=== PATIENT | male | born 1950 | race Caucasian/White ===

== ENCOUNTER → 2022-03-28 | Outpatient (REF) | payer MEDICARE, OTHER ==
[2022-03-28 16:24] LABS: BASO # 0.1 10^3/uL (0.0-0.2); BASO % 1.3 % (0.0-1.0); EOS # 0.1 10^3/uL (0.0-0.5); EOS % 1.3 % (0.0-3.0); LYMPH # 1.4 10^3/uL (1.5-5.0); LYMPH % 14.1 % (24.0-44.0); MEAN CORPUSCULAR HEMOGLOBIN 33.2 pg (27.0-33.0); MEAN CORPUSCULAR HGB CONC 32.7 g/dl (32.0-36.5); MEAN CORPUSCULAR VOLUME 101.5 fl (80.0-96.0); MONO # 0.8 10^3/uL (0.0-0.8); MONO % 7.7 % (2.0-8.0); NEUTROPHILS # 7.4 10^3/uL (1.5-8.5); NEUTROPHILS % 74.6 % (36.0-66.0); PLATELET COUNT, AUTOMATED 292 10^3/uL (150-450)
[2022-03-28 16:31] LABS: HEMATOCRIT 55.9 % (42.0-52.0); HEMOGLOBIN 18.3 g/dl (13.5-17.5); RED BLOOD COUNT 5.51 10^6/uL (4.30-6.10)
[2022-03-28 16:40] LABS: APPEARANCE, URINE MANUAL CLEAR (CLEAR); BILIRUBIN, URINE MANUAL NEGATIVE (NEGATIVE); BLOOD URINE MANUAL TRACE (NEGATIVE); COLOR, URINE MANUAL YELLOW (YELLOW); GLUCOSE, URINE (UA) MANUAL NEGATIVE (NEGATIVE); KETONE, URINE MANUAL NEGATIVE (NEGATIVE); LEUKOCYTE ESTERASE, URINE MAN NEGATIVE (NEGATIVE); NITRITE, URINE MANUAL NEGATIVE (NEGATIVE); PROTEIN, URINE MANUAL NEGATIVE (NEGATIVE); SPECIFIC GRAVITY,URINE MANUAL 1.015 (1.002-1.035); UROBILINOGEN, URINE MANUAL NORMAL (NORMAL)
[2022-03-28 16:54] LABS: ALBUMIN 4.3 G/DL (3.2-5.2); BILIRUBIN,TOTAL 2.2 MG/DL (0.3-1.2); C REACTIVE PROTEIN QUANTITATIV 0.6 MG/DL (<1.0); CALCIUM LEVEL 9.8 MG/DL (8.3-10.6); CREATININE FOR GFR 1.36 MG/DL (0.70-1.30); CREATININE,RANDOM URINE 39.5 MG/DL; GLOMERULAR FILTRATION RATE 54.7 (>42); TOTAL PROTEIN 7.8 G/DL (5.7-8.2)
[2022-03-28 16:55] LABS: TOTAL 25(OH) VITAMIN D 28.9 NG/ML (20.0-100.0)
[2022-03-28 16:56] LABS: COMPLEMENT C3 130.6 MG/DL (90.0-170.0); COMPLEMENT C4 32.1 MG/DL (12-36); IMMUNOGLOBULIN M 143.9 MG/DL (50-300)
[2022-03-28 16:57] LABS: TOTAL PROTEIN,RANDOM URINE < 6.0 MG/DL (0.0-14.0)
[2022-03-28 18:22] LABS: BACTERIA, URINE NONE SEEN; SQUAMOUS EPITHELIAL CELL URINE NONE SEEN /hpf (SMALL AMT); WBC, URINE NONE SEEN /hpf (0-3)
[2022-03-28 18:26] LABS: ERYTHROCYTE SEDIMENTATION RATE 41 mm/hr (0-20)
== END ==
LOC: M SFHCRHEU 12:41
PROVIDERS: ATTEND Internal Medicine Rheumatology
DX: J84.9 Interstitial pulmonary disease, unspecified (principal); R76.8 Other specified abnormal immunological findings in serum; Z79.01 Long term (current) use of anticoagulants; Z79.899 Other long term (current) drug therapy

== ENCOUNTER 2024-03-16 12:51 | Inpatient (IN) | payer OTHER, MEDICARE ==
[~2024-03-16] VITALS: Ht 180.3 cm; Wt 97.2 kg
[2024-03-16] VITALS (21 sets, daily range): BP systolic 80–114; BP diastolic 41–63; TEMP 99.4; O2SAT 83–99
[2024-03-16 13:40] LABS: VENOUS BASE EXCESS -5.9 (-2.0-2.0); VENOUS HCO3 18.6 MMOL/L (23.0-27.0); VENOUS O2 SATURATION 60.2 % (60.0-80.0); VENOUS PARTIAL PRESSURE CO2 34.1 mmHg (38.0-50.0); VENOUS PARTIAL PRESSURE O2 36.7 mmHg (30.0-50.0); VENOUS PH 7.355 UNITS (7.330-7.430); VENOUS STANDARD HCO3 18.8 MMOL/L; VENOUS TOTAL CO2 19.7 MMOL/L (24.0-28.0)
[2024-03-16] MEDS: NS 0.9% IV ONE (13:45)
[2024-03-16] MEDS: [UNRECOGNIZED DRUG - OTHER] IV ONE (13:45)
[2024-03-16] MEDS: cefTRIAXone SOD 2 GM in DEXTROSE 5% (D5W) ADV/MINI-BAG 50 ML IV ONE (13:51)
[2024-03-16 13:54] LABS: BASO % 0.2 % (0.0-1.0); EOS % 0.3 % (0.0-3.0); HEMATOCRIT 44.8 % (42.0-52.0); HEMOGLOBIN 14.9 g/dl (13.5-17.5); LYMPH # 0.7 10^3/uL (1.5-5.0); LYMPH % 7.1 % (24.0-44.0); MEAN CORPUSCULAR HEMOGLOBIN 29.3 pg (27.0-33.0); MEAN CORPUSCULAR HGB CONC 33.3 g/dl (32.0-36.5); MONO # 0.8 10^3/uL (0.0-0.8); MONO % 7.7 % (2.0-8.0); NEUTROPHILS # 8.2 10^3/uL (1.5-8.5); NEUTROPHILS % 83.9 % (36.0-66.0); PLATELET COUNT, AUTOMATED 343 10^3/uL (150-450); RED BLOOD COUNT 5.09 10^6/uL (4.30-6.10); WHITE BLOOD COUNT 9.8 10^3/uL (4.0-10.0)
[2024-03-16] MEDS: ACETAMINOPHEN *IV* 1,000 MG in IV 1 EA IV ONE (14:01)
[2024-03-16 14:10] LABS: CK-MB VALUE MASS 5.3 NG/ML (<3.6)
[2024-03-16 14:11] LABS: ALBUMIN 3.4 G/DL (3.2-5.2); BILIRUBIN,DIRECT 1.5 MG/DL (<0.4); BILIRUBIN,TOTAL 2.3 MG/DL (0.3-1.2); CALCIUM LEVEL 8.5 MG/DL (8.3-10.6); CREATININE FOR GFR 4.95 MG/DL (0.70-1.30); GLOMERULAR FILTRATION RATE 12.2 (>42); POTASSIUM SERUM 5.7 MMOL/L (3.5-5.1); TOTAL PROTEIN 6.9 G/DL (5.7-8.2)
[2024-03-16 14:13] LABS: THYROID STIMULATING HORMONE 13.921 uIU/ML (0.55-4.78); THYROXINE (T4) 4.9 UG/DL (4.5-10.9)
[2024-03-16 14:14] LABS: MB/CK RELATIVE INDEX 6.3 (< OR =4)
[2024-03-16 14:33] LABS: ABG BASE EXCESS -4.8 (-2.0-2.0); ABG HCO3 16.7 MMOL/L (22.0-26.0); ABG O2 SATURATION 79.2 % (95.0-99.0); ABG PARTIAL PRESSURE CO2 23.6 mmHg (35.0-45.0); ABG STANDARD HCO3 20.1 MMOL/L. (22.0-26.0); ABG TOTAL CO2 17.4 MMOL/L (23.0-31.0); ABG pH (ARTERIAL) 7.468 UNITS (7.350-7.450)
[2024-03-16 14:35] LABS: ABG PARTIAL PRESSURE O2 45.5 mmHg (75.0-100.0)
[2024-03-16] MEDS: fentaNYL 100 MCG/2 ML INJECTION IV ONE ×2 (15:28→16:54)
[2024-03-16] MEDS ORDERED: IPRATROPIUM 0.5MG/ALBUTEROL 2.5MG INH SOL UD 3ML (DUONEB) NEB PRN (15:50)
[2024-03-16] MEDS ORDERED: SPIR50TA4 PO (16:19)
[2024-03-16] MEDS ORDERED: DILT12SRCA PO (16:19)
[2024-03-16] MEDS ORDERED: XARE20TA PO (16:19)
[2024-03-16] MEDS ORDERED: [UNRECOGNIZED DRUG - CODE] PO (16:19)
[2024-03-16] MEDS ORDERED: SPIR1CAP INH (16:19)
[2024-03-16] MEDS ORDERED: METO200T15 PO (16:19)
[2024-03-16] MEDS ORDERED: TORS10TA3 PO (16:19)
[2024-03-16] MEDS: methylPREDNISolone 125MG 2ML VIAL IV ONE (16:26)
[2024-03-16] MEDS ORDERED: ADVA1AER9 INH (17:37)
[2024-03-16] MEDS ORDERED: TORS20TA2 PO (17:37)
[2024-03-16] MEDS ORDERED: DILT240C83 PO (17:37)
[2024-03-16] MEDS ORDERED: METO1TAB33 PO (17:37)
[2024-03-16] MEDS ORDERED: HOME MED LIST COMPLETE! XX SCH (17:40)
[2024-03-16] MEDS: DEXTROSE 50% 50ML SYRINGE IV ONE (17:51)
[2024-03-16] MEDS: SODIUM BICARBONATE 8.4% INJ 50ML SYRINGE IV ONE (17:54)
[2024-03-16] MEDS: PATIROMER SORBITEX CALCIUM 8.4 GM POWDER PACKET (VELTASSA) PO ONE ×2 (17:58→22:42)
[2024-03-16] MEDS: HumuLIN R (REGULAR) INSULIN (NovoLIN R) **100U/ML** PER UNIT IV ONE (17:59)
[2024-03-16 18:50] LABS: URIC ACID 17.6 MG/DL (3.7-9.2)
[2024-03-16 18:51] LABS: MAGNESIUM LEVEL 3.2 MG/DL (1.8-2.4)
[2024-03-16] MEDS ORDERED: DOXYCYCLINE HYCLATE 100 MG in DEXTROSE 5% (D5W) MINI-BAG PLU 100 ML IV SCH (19:20)
[2024-03-16] MEDS: NOREPINEPHRINE 4MG IN D5 250ML 4 MG in IV 1 EA IV SCH (19:39)
[2024-03-16] MEDS: MORPHINE 2 MG/ML 1ML VIAL IV PRN (19:46)
[2024-03-16] MEDS: LR 1,000 ML IV SCH (19:47)
[2024-03-16 20:46] LABS: HEMATOCRIT 42.7 % (42.0-52.0); HEMOGLOBIN 14.2 g/dl (13.5-17.5); MEAN CORPUSCULAR HEMOGLOBIN 28.9 pg (27.0-33.0); MEAN CORPUSCULAR HGB CONC 33.3 g/dl (32.0-36.5); PLATELET COUNT, AUTOMATED 335 10^3/uL (150-450); RED BLOOD COUNT 4.91 10^6/uL (4.30-6.10); WHITE BLOOD COUNT 9.6 10^3/uL (4.0-10.0)
[2024-03-16] MEDS: BUDESONIDE 0.5 MG/2 ML INHALATION SUSPENSION NEB SCH (20:55)
[2024-03-16] MEDS: ALBUTEROL SULFATE 2.5MG/0.5ML INH NEB SOLN NEB SCH (20:55)
[2024-03-16] MEDS: IPRATROPIUM 0.02% SOLN 0.5MG 2.5ML NEB NEB SCH (20:55)
[2024-03-16] MEDS: FORMOTEROL FUMARATE 20 MCG/2 ML INHALATION SOLUTION (PERFOROMIST) INH SCH (20:55)
[2024-03-16 21:13] LABS: ABG BASE EXCESS -3.7 (-2.0-2.0); ABG HCO3 18.3 MMOL/L (22.0-26.0); ABG O2 SATURATION 98.7 % (95.0-99.0); ABG PARTIAL PRESSURE CO2 26.2 mmHg (35.0-45.0); ABG PARTIAL PRESSURE O2 128.4 mmHg (75.0-100.0); ABG STANDARD HCO3 21.5 MMOL/L. (22.0-26.0); ABG TOTAL CO2 19.1 MMOL/L (23.0-31.0); ABG pH (ARTERIAL) 7.463 UNITS (7.350-7.450)
[2024-03-16] MEDS: DOXYCYCLINE HYCLATE 100 MG in DEXTROSE 5% (D5W) MINI-BAG PLU 100 ML IV SCH (21:26)
[2024-03-16 21:28] LABS: ALBUMIN 3.2 G/DL (3.2-5.2); BILIRUBIN,TOTAL 2.1 MG/DL (0.3-1.2); CALCIUM LEVEL 8.5 MG/DL (8.3-10.6); CREATININE FOR GFR 4.98 MG/DL (0.70-1.30); GLOMERULAR FILTRATION RATE 12.2 (>42); MAGNESIUM LEVEL 3.2 MG/DL (1.8-2.4); POTASSIUM SERUM 5.7 MMOL/L (3.5-5.1); TOTAL PROTEIN 6.6 G/DL (5.7-8.2)
[2024-03-17] VITALS (105 sets, daily range): BP systolic 77–130; BP diastolic 47–74; TEMP 97.2–99.8; O2SAT 85–97
[2024-03-17 04:36] LABS: HEMATOCRIT 40.2 % (42.0-52.0); HEMOGLOBIN 13.9 g/dl (13.5-17.5); MEAN CORPUSCULAR HEMOGLOBIN 29.7 pg (27.0-33.0); MEAN CORPUSCULAR HGB CONC 34.6 g/dl (32.0-36.5); MEAN CORPUSCULAR VOLUME 85.9 fl (80.0-96.0); PLATELET COUNT, AUTOMATED 337 10^3/uL (150-450); RED BLOOD COUNT 4.68 10^6/uL (4.30-6.10)
[2024-03-17 05:06] LABS: BILIRUBIN,TOTAL 1.9 MG/DL (0.3-1.2); CALCIUM LEVEL 8.7 MG/DL (8.3-10.6); CREATININE FOR GFR 4.75 MG/DL (0.70-1.30); GLOMERULAR FILTRATION RATE 12.8 (>42); PHOSPHORUS LEVEL 6.5 MG/DL (2.4-5.1); POTASSIUM SERUM 5.9 MMOL/L (3.5-5.1); TOTAL PROTEIN 6.2 G/DL (5.7-8.2)
[2024-03-17 05:53] LABS: ABG HCO3 15.7 MMOL/L (22.0-26.0); ABG O2 SATURATION 92.1 % (95.0-99.0); ABG PARTIAL PRESSURE O2 68.7 mmHg (75.0-100.0); ABG STANDARD HCO3 18.8 MMOL/L. (22.0-26.0); ABG TOTAL CO2 16.4 MMOL/L (23.0-31.0); ABG pH (ARTERIAL) 7.415 UNITS (7.350-7.450)
[2024-03-17] MEDS: PATIROMER SORBITEX CALCIUM 8.4 GM POWDER PACKET (VELTASSA) PO ONE (06:37)
[2024-03-17] MEDS: DEXTROSE 50% 50ML SYRINGE IV STA (06:38)
[2024-03-17] MEDS: HumuLIN R (REGULAR) INSULIN (NovoLIN R) **100U/ML** PER UNIT IV STA (06:38)
[2024-03-17] MEDS: FUROSEMIDE 40MG/4ML VIAL IV ONE (07:05)
[2024-03-17] MEDS ORDERED: PANTOPRAZOLE 40MG VIAL IV SCH (09:00)
[2024-03-17] MEDS: RIVAROXABAN 20MG TAB (XARELTO) PO SCH (09:39)
[2024-03-17 10:23] LABS: CALCIUM LEVEL 8.8 MG/DL (8.3-10.6); CREATININE FOR GFR 4.6 MG/DL (0.70-1.30); GLOMERULAR FILTRATION RATE 13.3 (>42); POTASSIUM SERUM 5.3 MMOL/L (3.5-5.1)
[2024-03-17] MEDS: LEVOTHYROXINE 50MCG TABLET (0.05MG) PO SCH (11:08)
[2024-03-17] MEDS: PANTOPRAZOLE 40MG TAB (PROTONIX) PO SCH (11:08)
[2024-03-17] MEDS: dexmedeTOMidine 200 MCG in IV 1 EA IV SCH (11:08)
[2024-03-17] MEDS ORDERED: DOBUTamine HCL 500,000 MCG in IV 1 EA IV SCH ×2 (11:15→11:35)
[2024-03-17] MEDS: DOBUTamine HCL 500,000 MCG in IV 1 EA IV SCH (12:24)
[2024-03-17] MEDS: SODIUM BICARBONATE 150 MEQ in STERILE WATER LITER BAG 1,000 ML IV SCH (15:16)
[2024-03-17] MEDS: cefTRIAXone SOD 2 GM in DEXTROSE 5% (D5W) ADV/MINI-BAG 50 ML IV SCH (15:16)
[2024-03-17] MEDS: SELEXIPAG PO SCH (15:16)
[2024-03-17 18:11] LABS: CALCIUM LEVEL 8.5 MG/DL (8.3-10.6); CREATININE FOR GFR 4.27 MG/DL (0.70-1.30); GLOMERULAR FILTRATION RATE 14.5 (>42)
[2024-03-17] MEDS: dilTIAZem 120MG **CD** CAPSULE PO SCH (18:53)
[2024-03-17] MEDS ORDERED: LEVALBUTEROL 1.25MG 0.5ML CONCENTRATE NEB INH PRN (20:05)
[2024-03-17] MEDS: diphenhydrAMINE 25MG CAP PO ONE (21:05)
[2024-03-17] MEDS: DOXYCYCLINE HYCLATE 100MG TABLET PO SCH (21:05)
[2024-03-17] MEDS: LEVALBUTEROL 1.25MG 0.5ML CONCENTRATE NEB INH SCH (23:20)
[2024-03-17] MEDS: IPRATROPIUM 0.02% SOLN 0.5MG 2.5ML NEB INH SCH (23:20)
[2024-03-17] MEDS: METOPROLOL TART 25 MG TABLET PO ONE (23:52)
[2024-03-18] VITALS (59 sets, daily range): BP systolic 87–133; BP diastolic 47–85; TEMP 97.2–99.2; O2SAT 87–98
[2024-03-18] MEDS: DIGOXIN INJ 0.5 MG/2 ML AMP IV STA (00:54)
[2024-03-18 03:54] LABS: ABG BASE EXCESS -3.1 (-2.0-2.0); ABG HCO3 18.8 MMOL/L (22.0-26.0); ABG O2 SATURATION 94.2 % (95.0-99.0); ABG PARTIAL PRESSURE O2 69.4 mmHg (75.0-100.0); ABG STANDARD HCO3 21.8 MMOL/L. (22.0-26.0); ABG TOTAL CO2 19.6 MMOL/L (23.0-31.0); ABG pH (ARTERIAL) 7.477 UNITS (7.350-7.450)
[2024-03-18 04:44] LABS: HEMATOCRIT 38.6 % (42.0-52.0); HEMOGLOBIN 13.2 g/dl (13.5-17.5); MEAN CORPUSCULAR HEMOGLOBIN 29.2 pg (27.0-33.0); MEAN CORPUSCULAR HGB CONC 34.2 g/dl (32.0-36.5); MEAN CORPUSCULAR VOLUME 85.4 fl (80.0-96.0); PLATELET COUNT, AUTOMATED 245 10^3/uL (150-450); RED BLOOD COUNT 4.52 10^6/uL (4.30-6.10); WHITE BLOOD COUNT 11.1 10^3/uL (4.0-10.0)
[2024-03-18 05:15] LABS: ALBUMIN 2.9 G/DL (3.2-5.2); BILIRUBIN,TOTAL 1.4 MG/DL (0.3-1.2); CALCIUM LEVEL 8.6 MG/DL (8.3-10.6); CREATININE FOR GFR 3.81 MG/DL (0.70-1.30); GLOMERULAR FILTRATION RATE 16.6 (>42); MAGNESIUM LEVEL 2.7 MG/DL (1.8-2.4); POTASSIUM SERUM 5.2 MMOL/L (3.5-5.1)
[2024-03-18] MEDS: VASOPRESSIN IN 0.9 % NACL 20 UNIT in IV 1 EA IV SCH (09:55)
[2024-03-18] MEDS ORDERED: SODIUM CHLORIDE NASAL 0.65% SPRAY BTL (OCEAN) PRN (10:00)
[2024-03-18] MEDS: FUROSEMIDE injection 100 MG, VIAL 2 BAG 13MM ADAPTER 1 EACH in NS 100 ML IV SCH (11:42)
[2024-03-18] MEDS: MORPHINE 2 MG/ML 1ML VIAL IV PRN (16:59)
[2024-03-18] MEDS: LORazepam 2 MG/ML 1ML VIAL IV PRN (17:08)
[2024-03-18] MEDS: SCOPOLAMINE 1MG TRANSDERMAL PATCH TOP PRN (17:17)
[2024-03-18] MEDS ORDERED: RIVAROXABAN 15MG TAB (XARELTO) PO SCH (18:00)
[2024-03-18] MEDS: MORPHINE 2 MG/ML 1ML VIAL IV SCH (18:00)
[2024-03-18] MEDS: ONDANSETRON 4MG 2ML VIAL IV PRN (18:07)
[2024-03-18] MEDS ORDERED: MORPHINE 4 MG/ML 1ML VIAL IV PRN (21:25)
[2024-03-18] MEDS ORDERED: LORazepam 2 MG/ML 1ML VIAL IV PRN (21:25)
[2024-03-18] MEDS ORDERED: MORPHINE 4 MG/ML 1ML VIAL As Ordered ONE (21:29)
[2024-03-18] MEDS ORDERED: LORazepam 2 MG/ML 1ML VIAL As Ordered ONE (21:30)
== END 2024-03-18 23:00 | disposition expired | DRG 189 ==
LOC: M ED 12:51 → M ED INP 17:36 → M ICU 18:52
PROVIDERS: ADMIT Internal Medicine Pulmonary Disease; ATTEND Internal Medicine
DX: J96.21 Acute and chronic respiratory failure with hypoxia (principal); J18.9 Pneumonia, unspecified organism; N17.9 Acute kidney failure, unspecified; I13.0 Hypertensive heart and chronic kidney disease with heart failure and stage 1 through stage 4 chronic kidney disease, or unspecified chronic kidney disease; E87.1 Hypo-osmolality and hyponatremia; E87.20 Acidosis, unspecified; I16.9 Hypertensive crisis, unspecified; I48.21 Permanent atrial fibrillation; J96.22 Acute and chronic respiratory failure with hypercapnia; I95.9 Hypotension, unspecified; E87.5 Hyperkalemia; E03.9 Hypothyroidism, unspecified; I50.810 Right heart failure, unspecified; I27.20 Pulmonary hypertension, unspecified; J84.10 Pulmonary fibrosis, unspecified; K70.31 Alcoholic cirrhosis of liver with ascites; R57.0 Cardiogenic shock; I46.9 Cardiac arrest, cause unspecified; J61 Pneumoconiosis due to asbestos and other mineral fibers; Z95.0 Presence of cardiac pacemaker; N40.0 Benign prostatic hyperplasia without lower urinary tract symptoms; Z51.5 Encounter for palliative care; Z79.01 Long term (current) use of anticoagulants; N18.9 Chronic kidney disease, unspecified; Z66 Do not resuscitate